=== PATIENT | male | born 1980 | race Native Hawaiian/Other Pacific Islander ===

== ENCOUNTER → 2017-11-10 12:39 | Outpatient (CLI) | payer OTHER ==
[~2017-11-10 12:39] MED LIST: LEXAPRO10 MG OR; LISI10TA11 PO
== END | disposition home or self-care (01) ==
LOC: AMB 12:39
DX: Z04.1 Encounter for examination and observation following transport accident (principal)

== ENCOUNTER 2019-12-29 17:30 | Inpatient (IN) | payer OTHER ==
[~2019-12-29] VITALS: Ht 170.2 cm; Wt 86.7 kg
[2019-12-29] MEDS ORDERED: LISI20TA11 PO (18:53)
[2019-12-29] MEDS ORDERED: LORA1TAB17 PO (18:56)
[2019-12-29 19:44] LABS: PLATELET COUNT 242 K/uL (142-355)
[2019-12-29 19:49] LABS: POTASSIUM 4.2 mmol/L (3.6-5.2)
[2019-12-29 20:20] VITALS: BP 122/86; TEMP 98.4; Ht 170.2 cm; Wt 86.7 kg
[2019-12-30] VITALS (23 sets, daily range): BP systolic 100–162; BP diastolic 56–101; TEMP 96.6–99.8
[2019-12-30 18:24] LABS: PLATELET COUNT 277 K/uL (142-355)
[2019-12-31] VITALS: BP 122/68; TEMP 97.3
[2019-12-31 03:52] VITALS: BP 131/73; TEMP 97.6
[2019-12-31 08:00] VITALS: BP 127/76; TEMP 97.9
[2019-12-31 12:00] VITALS: BP 131/75; TEMP 97.7
[2019-12-31 14:28] LABS: PLATELET COUNT 221 K/uL (142-355)
[2019-12-31 16:00] VITALS: BP 139/80; TEMP 98.9
[2019-12-31 20:11] VITALS: BP 152/86; TEMP 98.6
[2020-01-01] VITALS: BP 161/79; TEMP 98.8
[2020-01-01 04:00] VITALS: BP 154/71; TEMP 98.6
[2020-01-01 08:00] VITALS: BP 157/98; TEMP 98.2
[2020-01-01 09:42] LABS: POTASSIUM 4.3 mmol/L (3.6-5.2)
[2020-01-01 12:13] VITALS: BP 132/77; TEMP 98.9
[2020-01-01 16:00] VITALS: BP 166/91; TEMP 98.7
[2020-01-01 20:00] VITALS: BP 152/88; TEMP 98.7
[2020-01-02] VITALS (7 sets, daily range): BP systolic 126–152; BP diastolic 71–87; TEMP 98.1–99.6
[2020-01-03 04:00] VITALS: BP 129/78; TEMP 98.8
[2020-01-03 08:00] VITALS: BP 160/82; TEMP 98.1
[2020-01-03 12:00] VITALS: BP 141/73; TEMP 98.6
[2020-01-03 16:00] VITALS: BP 138/87; TEMP 98.7
[2020-01-03 20:00] VITALS: BP 144/85; TEMP 98.6
[2020-01-04] VITALS (12 sets, daily range): BP systolic 128–158; BP diastolic 62–91; TEMP 98.2–99.2
[2020-01-04 05:20] LABS: PLATELET COUNT 172 K/uL (142-355)
[2020-01-04 05:48] LABS: POTASSIUM 3.8 mmol/L (3.6-5.2)
[2020-01-04] MEDS ORDERED: FOLI1TAB26 PO (15:29)
[2020-01-04] MEDS ORDERED: SM IRON325 MG PO (15:31)
[2020-01-04] MEDS ORDERED: DOCUSATE SOD PO (15:31)
[2020-01-04] MEDS ORDERED: PANTOPRAZOLE 40MG TA PO (15:32)
== END 2020-01-04 17:00 | disposition home or self-care (01) | DRG 300 ==
LOC: MED/SURG 17:30
PROVIDERS: Student in an Organized Health Care Education/Training Program; ADMIT Internal Medicine
PROC: 30233N1 Transfusion of Nonautologous Red Blood Cells into Peripheral Vein, Percutaneous Approach (ICD-10-PCS; 2019-12-30)
PROC: 0DJD8ZZ Inspection of Lower Intestinal Tract, Via Natural or Artificial Opening Endoscopic (ICD-10-PCS; 2019-12-30)
PROC: 0DJD8ZZ Inspection of Lower Intestinal Tract, Via Natural or Artificial Opening Endoscopic (ICD-10-PCS; principal; 2020-01-02)
PROC: 0DB78ZX Excision of Stomach, Pylorus, Via Natural or Artificial Opening Endoscopic, Diagnostic (ICD-10-PCS; 2020-01-04)
DX: Q27.33 Arteriovenous malformation of digestive system vessel (principal); K92.2 Gastrointestinal hemorrhage, unspecified; D62 Acute posthemorrhagic anemia; I10 Essential (primary) hypertension; F41.8 Other specified anxiety disorders; K29.60 Other gastritis without bleeding
CPT/HCPCS: 36415; 80048; 80053; 82607; 82728; 82746; 83540; 85014; 85018; 85027; 86850; 86900; 86901; 86922; J0171; J0330; J0360; J2001; J2060; J2405; J2704; J2916; J3490; P9016